=== PATIENT | female | born 2000 | race African-American/Black ===

== ENCOUNTER 2022-02-07 19:15 | Emergency (ER) | payer OTHER ==
[2022-02-07 19:23] VITALS: BP 117/72; PULSE 95; RESP 18; TEMP 98.2; BMI 22.6
[2022-02-07] MEDS ORDERED: CYCLOBENZAPRINE HCL 10 MG TABLET (FP) PO ONE (20:10)
[2022-02-07] MEDS ORDERED: KETOROLAC TROMETHAMINE 30 MG/1 ML VIAL IM ONE (20:10)
[2022-02-07] MEDS ORDERED: CYCLOBENZAPRINE HCL 10 MG TABLET (FP) ONE (20:12)
[2022-02-07] MEDS ORDERED: KETOROLAC TROMETHAMINE 30 MG/1 ML VIAL ONE (20:12)
== END 2022-02-07 20:53 | disposition home or self-care (01) ==
LOC: JERFT 19:15
PROC: 3E023GC Introduction of Other Therapeutic Substance into Muscle, Percutaneous Approach (ICD-10-PCS; principal; 2022-02-07)
DX: R07.9 Chest pain, unspecified (principal)
CPT/HCPCS: 71046-TC-FY; 93005; 93010; 99284-25